=== PATIENT | male | born 1950 | race Caucasian/White ===

== ENCOUNTER 2019-09-01 01:34 | Inpatient (IN) | payer OTHER ==
[~2019-09-01] VITALS: Ht 165.1 cm; Wt 3.0 kg
[2019-09-01] MEDS ORDERED: ASPirin-EC 325mg tab PO ONE (02:45)
[2019-09-01] MEDS ORDERED: NITROGLYCERIN 0.2MG/HR TOPICAL PATCH TD ONE (02:45)
[2019-09-01 03:01] LABS: Basophils # (auto) 0 uL; Basophils % (auto) 0.6 % (0.0-2.0); Eosinophils # (auto) 0 uL; Eosinophils % (auto) 0.6 % (0.0-7.0); Hematocrit 33.9 % (41.0-53.0); Hemoglobin 11.9 g/dL (13.5-17.5); Lymphocytes # (auto) 1.2 uL; Lymphocytes % (auto) 17.1 % (10.0-50.0); Mean Corpuscular Hemoglobin 33.4 pg (28.0-32.0); Mean Corpuscular Hgb Conc. 35.1 g/dL (32.0-36.0); Monocytes # (auto) 0.5 uL; Monocytes % (auto) 7.6 % (0.0-12.0); Neutrophils # (auto) 5.3 uL; Neutrophils % (auto) 74.1 % (37.0-80.0); Nucleated Red Blood Cells % 0.1 %; Platelet Count (auto) 199 10^3/uL (140-450); Red Blood Cells 3.57 10^6/uL (4.5-5.90); Red Cell Distribution Width 15.1 % (11.8-14.3); White Blood Cell 7.1 10^3/uL (4.4-10.8)
[2019-09-01 03:14] LABS: INR 0.94 (0.9-1.15); Partial Thromboplastin Time 24.5 sec (23.64-32.05)
[2019-09-01 03:18] LABS: Alanine Aminotransferase 13 U/L (16-61); Albumin 2.9 g/dL (3.4-5.0); Anion Gap 5 (5-15); Aspartate Aminotransferase 7 U/L (15-37); BUN/Creatinine Ratio 28.1; Blood Urea Nitrogen 25 mg/dL (7-18); Calcium 8.1 mg/dL (8.5-10.1); Carbon Dioxide 29 mmol/L (21-32); Chloride 110 mmol/L (98-107); GFR African American 109 mL/min; GFR Non-African American 90 mL/min; Glucose 111 mg/dL (74-106); Potassium 3.6 mmol/L (3.5-5.1); Sodium 144 mmol/L (136-145)
[2019-09-01 03:22] LABS: Alkaline Phosphatase 52 U/L (45-117); Bilirubin, Total 0.5 mg/dL (0.2-1.0)
[2019-09-01] MEDS ORDERED: ACETAMINOPHEN 500 MG TAB PO PRN (05:00)
[2019-09-01] MEDS ORDERED: ONDANSETRON HCL 4 MG/2 ML VIAL IV PRN (05:00)
[2019-09-01] MEDS ORDERED: TEMAZEPAM 15 MG CAP PO PRN (05:00)
[2019-09-01] MEDS ORDERED: FUROSEMIDE 20 MG/2 ML VIAL IV ONE (05:15)
[2019-09-01 06:00] VITALS: BP 168/99
--- NOTE | 2019-09-01 06:00 | NUR ---
Telemetry admit from [facility] admitted to Telemetry unit. Patient oriented to GENNY GUTIERREZ RN primary RN, unit, room, bed, and unit policies regarding patient care and visiting hours. Patient now on continuous telemetry monitoring, tele box 31 and telemetry reading on arrival to unit is NSR. Patient placed on 2L bedside oxygen via NC, weighed by bedscale and encouraged to call if they need something. All questions and concerns addressed, patient verbalized understanding. Note: Patient has vascular dementia and has a memory span of 5-7 minutes.
--- NOTE | 2019-09-01 06:05 | NUR ---
Paged the hospitalist, patient complaining of chest pain after using the bathroom. Patient had been bearing down previously and walked back to the bed. Patient's BP is currently 168/99, HR 57. Patient placed on 2L oxygen via nasal cannula. Patient returned to bed and pain subsided. Awaiting orders.
--- NOTE | 2019-09-01 07:00 | NUR ---
Hospitalist has not returned paged, endorsed care to daytime RN. Patient is currently free of pain and distress. Safety measures in place bed in lowest position, side rails x2 up, and call light within reach.
--- NOTE | 2019-09-01 07:40 | NUR ---
Opening Shift Note Assumed care of patient, awake and alert but forgetful, trying to get out of bed without assistance. No S/S of distress/SOB or pain. Instructed on POC and to call for assist PRN, will continue to monitor for changes Q1hr and PRN. Son at bedside.
[2019-09-01] MEDS ORDERED: CLOP75TA28 PO (07:42)
[2019-09-01] MEDS ORDERED: ALPR0.254 PO (07:42)
[2019-09-01] MEDS ORDERED: LISI2.5T47 PO (07:42)
[2019-09-01] MEDS ORDERED: LATA0.0015 EACHEYE (07:42)
[2019-09-01] MEDS ORDERED: MEMA10TA PO (07:42)
[2019-09-01] MEDS ORDERED: ERGO1CAP23 PO (07:42)
[2019-09-01] MEDS ORDERED: ATO40T PO (07:42)
[2019-09-01] MEDS ORDERED: BRIM0.2S2 OP (07:42)
[2019-09-01] MEDS ORDERED: MELA1TAB35 PO (07:42)
[2019-09-01] MEDS ORDERED: DOCU1CAP46 PO (07:42)
[2019-09-01] MEDS ORDERED: ASPI-498 PO (07:42)
[2019-09-01] MEDS ORDERED: GALA4TAB PO (07:42)
[2019-09-01] MEDS ORDERED: FAMO-12 PO (07:42)
[2019-09-01] MEDS ORDERED: CARV3.1240 PO (07:42)
[2019-09-01 09:00] VITALS: BP 157/85
[2019-09-01] MEDS ORDERED: DOCUSATE SOD 100 MG CAP PO SCH (10:00)
[2019-09-01] MEDS ORDERED: MEMANTINE HCL 5 MG TAB PO SCH (10:00)
[2019-09-01] MEDS ORDERED: FAMOTIDINE 20 MG TAB PO SCH (10:00)
[2019-09-01] MEDS ORDERED: CARVEDILOL 3.125 MG TAB PO SCH (10:00)
[2019-09-01] MEDS ORDERED: CLOPIDOGREL BISULFATE 75 MG TAB PO SCH (10:00)
[2019-09-01] MEDS ORDERED: ASPirin-EC 81 mg tab PO SCH (10:00)
[2019-09-01] MEDS ORDERED: OPTISON 3ml Vial for INJ IV ONE (11:46)
--- NOTE | 2019-09-01 12:15 | NUR ---
IV Insertion Previous IV dislodged. IV access obtained, via clean sterile technique by inserting 22 gauge catheter at right forearm after 1 attempt. IV secured properly. No trauma to site. Patient tolerated well.
[2019-09-01 13:00] VITALS: BP 162/90
[2019-09-01 17:00] VITALS: BP 123/76
--- NOTE | 2019-09-01 18:10 | NUR ---
Brush Trimming Machine Setter Dr. Quintero in to see patient.
--- NOTE | 2019-09-01 18:15 | NUR ---
Manager Of Photography As per Dr. Quintero, no further work-up needed. ECHO showed mild aortic regurgitation. 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 He will notify Dr. Segundo.
--- NOTE | 2019-09-01 18:45 | NUR ---
Hospitalist rounding Dr. Soni in to see patient.
--- NOTE | 2019-09-01 18:50 | NUR ---
Phone call with family member Dr. Soni called patient's son to notify him of plan of action for the patient. He will be discharged tonight.
--- NOTE | 2019-09-01 19:15 | NUR ---
OPENING SHIFT NOTE Assumed care of patient who is A&Ox3. Currently on RA with no SOB or distress. Pt c/o headache. Educated patient that this is a side effect of nitro patch. Verbalizes understand, but requires reinforcement. Bed is in low locked position with side rails up x2. Sitter is at the bedside for safety. Patient is to discharge tonight, son will transport back to board and care facility.
--- NOTE | 2019-09-01 20:23 | NUR ---
Patient discharge to Son. IV and tele box, and Identification bracelet removed. Discharge education provided and all questions answered. Left unit in w/c with son, escorted by RECYCLING OPERATIONS MANAGER.
[2019-09-01] MEDS ORDERED: ATORVASTATIN 20 MG TAB PO SCH (22:00)
== END 2019-09-01 20:10 | disposition home or self-care (01) | DRG 303 ==
LOC: EDBD 01:34 → ER 01:39 → CENTRAL 01:40
PROVIDERS: ADMIT Internal Medicine Cardiovascular Disease; ATTEND Internal Medicine
DX: I25.119 Atherosclerotic heart disease of native coronary artery with unspecified angina pectoris (principal); E44.0 Moderate protein-calorie malnutrition; Z68.1 Body mass index [BMI] 19.9 or less, adult; E78.5 Hyperlipidemia, unspecified; F01.50 Vascular dementia, unspecified severity, without behavioral disturbance, psychotic disturbance, mood disturbance, and anxiety; I10 Essential (primary) hypertension; F41.9 Anxiety disorder, unspecified; I25.2 Old myocardial infarction; Z86.73 Personal history of transient ischemic attack (TIA), and cerebral infarction without residual deficits; Z79.899 Other long term (current) drug therapy
CPT/HCPCS: 36415; 71045; 80053; 83880; 84484; 85025; 85610; 85730; 93005; 93306; 96374; G0378; Q9956

== ENCOUNTER 2020-07-26 08:56 | Emergency (ER) | payer OTHER ==
[~2020-07-26] VITALS: Ht 167.6 cm; Wt 74.8 kg
[~2020-07-26 08:56] MED LIST: ALPR0.254 PO; ASPI-498 PO; ATO40T PO; BRIM0.2S2 OP; CARV3.1240 PO; CLOP75TA28 PO; DOCU1CAP46 PO; ERGO1CAP23 PO; FAMO-12 PO; GALA4TAB PO; LATA0.0019 EACHEYE; LISI2.5T47 PO; MELA1TAB35 PO; MEMA10TA PO
[2020-07-26 09:32] LABS: Basophils # (auto) 0.1 10 ^3/uL (0-0.2); Basophils % (auto) 0.6 % (0.0-2.0); Eosinophils # (auto) 0 10 ^3/uL (0-0.8); Eosinophils % (auto) 0.4 % (0.0-7.0); Hematocrit 40.3 % (41.0-53.0); Hemoglobin 13.4 g/dL (13.5-17.5); Lymphocytes # (auto) 0.6 10 ^3/uL (0.4-5.4); Lymphocytes % (auto) 5.7 % (10.0-50.0); Mean Corpuscular Hemoglobin 30.9 pg (28.0-32.0); Mean Corpuscular Hgb Conc. 33.3 g/dL (32.0-36.0); Mean Corpuscular Volume 92.8 fL (80.0-100.0); Monocytes # (auto) 0.6 10 ^3/uL (0-1.3); Monocytes % (auto) 6.6 % (0.0-12.0); Neutrophils # (auto) 8.6 10 ^3/uL (1.6-8.6); Neutrophils % (auto) 86.7 % (37.0-80.0); Platelet Count (auto) 214 10^3/uL (140-450); Red Blood Cells 4.35 10^6/uL (4.5-5.90); Red Cell Distribution Width 14.7 % (11.8-14.3); White Blood Cell 9.9 10^3/uL (4.4-10.8)
[2020-07-26 09:51] LABS: INR 1.03 (0.9-1.15); Partial Thromboplastin Time 24.1 sec (23.0-31.2)
[2020-07-26 09:53] LABS: Albumin 3.2 g/dL (3.4-5.0); Calcium 8.8 mg/dL (8.5-10.1); Magnesium 3.2 mg/dL (1.6-2.6); Potassium 3.7 mmol/L (3.5-5.1)
[2020-07-26 10:00] LABS: BUN/Creatinine Ratio 14.4; Bilirubin, Total 0.6 mg/dL (0.2-1.0); Total Protein 7.5 g/dL (6.4-8.2)
[2020-07-26 13:41] LABS: Urine Bacteria NONE SEEN /hpf (None Seen); Urine Blood 2+ /uL (Negative); Urine Mucus FEW (None Seen); Urine Specific Gravity 1.013 (1.001-1.035); Urine WBC 2 /hpf (0 - 3)
--- NOTE | 2020-07-26 17:00 | NUR ---
Assessment Patient is an 70-year-old male. Assessment was completed with patient son Jesús . Prior to admission patient lived at [facility] in [place]. Per Jesús he would like patient on Hospice. Informed Jesús there is a social service consult for hospice. Per Jesús he has been speaking with Allison with [facility] and would like this agency to care for his father. Informed Jesús he has a right to participate in all discharge planning. Jesús verbalized understanding and agreed to discharge plan home. Faxed clinical information to [facility]. Per Allison with [facility] patient has been accepted and service to start upon d/c day. [employer] will transport patient home between 7-8pm. ER Nurse was informed.
[2020-07-26 19:32] VITALS: BP 132/75
== END 2020-07-26 19:44 | disposition home or self-care (01) ==
LOC: EDBD 08:56 → ER 08:56
DX: K92.2 Gastrointestinal hemorrhage, unspecified (principal); I62.9 Nontraumatic intracranial hemorrhage, unspecified; F03.90 Unspecified dementia, unspecified severity, without behavioral disturbance, psychotic disturbance, mood disturbance, and anxiety; I10 Essential (primary) hypertension; F41.9 Anxiety disorder, unspecified; I25.2 Old myocardial infarction; E78.5 Hyperlipidemia, unspecified; Z86.73 Personal history of transient ischemic attack (TIA), and cerebral infarction without residual deficits; Z79.899 Other long term (current) drug therapy
CPT/HCPCS: 36415; 70450; 71045; 74176; 80053; 81001; 83735; 84484; 85025; 85610; 85730; 93005; 99291